=== PATIENT | female | born 1990 | race Asian ===

== ENCOUNTER 2016-10-25 07:06 | Day surgery (SDC) | payer OTHER ==
[~2016-10-25] VITALS: Ht 152.4 cm; Wt 38.3 kg
[2016-10-25] MEDS ORDERED: fentaNYL-PF 50 mCg/mL 2 mL Inj ONE (07:07)
[2016-10-25] MEDS ORDERED: Propofol 10,000 mCg/mL 20 mL Inj ONE (07:07)
[2016-10-25] MEDS ORDERED: CeFAZolin 2 Gm/50 mL D5W Duplex Bag IV ONE (07:10)
[2016-10-25 07:23] VITALS: BP 98/63; PULSE 66; RESP 16; O2SAT 81
[2016-10-25] MEDS: Lactated Ringer's 1,000 ML IV SCH ×2 (07:45→10:04)
[2016-10-25 08:51] VITALS: O2SAT 98
[2016-10-25] MEDS ORDERED: CeFAZolin 1 Gm/50 mL D5W IV Premix IV SCH (09:00)
[2016-10-25] MEDS ORDERED: Lactated Ringer's 500 ML IV PRN (09:48)
[2016-10-25] MEDS ORDERED: Lactated Ringer's 1,000 ML IV SCH (09:48)
--- NOTE | 2016-10-25 09:48 | PCM.HPANE ---
Patient Data Surgeon Admitting Provider: Attending Provider:Jocy Winchester MD Primary Care Physician:Blake Sweet MD Other Provider:[facility] Reason for Visit Urgency Of Urination Ht/WT & BMI Height (Feet): 5 Height (Inches): 0 Weight (Kilograms): 39.3 Body Mass Index 17.00 Allergies Coded Allergies: oxycodone (Verified Adverse Reaction, Intermediate, Headache, 10/23/16) Past Anesthesia History Anesthesia History: Denies:: Anesthesia Reactions, Fam Anesthesia Reaction, Fam Malignant Hypertherm, Malignant Hyperthermia Diabetes History Hx Diabetes?: No MRSA MRSA: No Medications Discontinued Reported Medications Valacyclovir 500 Mg [id number] Mg PO 10/23/16 Nortriptyline 10 Mg [id number] Mg PO HS 10/16/14 History History of ENT Problems?: No HEENT History: Denies:: Cataracts Glaucoma Hearing Problem Denture Type: None Teeth Condition: Within Normal Limits Hx of Heart Problems?: No Cardiovascular History: Denies:: Abdominal Aortic Aneurism Atrial Fibrillation Cardiac Surgery Chest Pain Congestive Heart Failure Coronary Artery Disease Edema Heart Murmur Hypertension Peripheral Vascular Rheumatic Fever Thrombophlebitis Valvular Heart Disease Hx of Respiratory Problem?: No Respiratory History: Denies:: Use of C-PAP Machine Hx Neurologic Problems?: No Neurological History: Denies:: Headaches Hx of GI Problems?: Yes Hx of Problems?: Yes Female Hx: Denies:: Currently Problems with Breasts? Skin History: Denies:: History Skin Disorders? Pressure Ulcers Hx Musculoskeletal Problems?: No Musculoskeletal History: Denies:: Back Injury Degenerative Joint Fibromyalgia Joint Replacement Musculoskeletal Trauma Myasthenia Gravis Osteoarthritis Rheumatoid Arthritis Systemic Lupus Hx of Psycho/Social Problems?: No Hx Surgeries?: Yes (Stage I interstim) Hx Any Other Health Problems?: Yes Other History: Denies:: Cancer Endocrine Disease Hospitalization Thyroid Disease History Blood Transfusions: Positive for:: Accept Blood Products? Denies:: Blood Transfusions Hx Diabetes: No Hx Alcohol Use: NoHx Substance Use: No Smoking Status: Never Smoker Have You Smoked inLast 12 mo: No Stop/Bang S-Snoring: Do You Snore Loudly: No T-Tired: feel tired, fatigued: No O-Obsered: Observed not breath: No P-Blood Pressure: treated: No B- Body Mass Index > 35 kg/m2: No A- Age over 50: No N- Neck Large Circumference: No G- Gender Male: No YINA Total Score: 0 YINA Risk Assessment: Low Risk, <3 Yes Risk Assessment Category Category 1A: Patient has history of documented sleep apnea, and HAS NOT received any narcotic, sedative or anesthesia administration during this stay. Category 1B: Patient has history of documented sleep apnea, and HAS received any narcotic , sedative or anesthesia administration during this stay Category 2: Patient has SUSPECTED Obstructive Sleep Apnea, and HAS received any narcotic , sedative or anesthesia administration during this stay. Category 3: Patient has SUSPECTED Obstructive Sleep Apnea and HAS NOT received narcotic, sedative or anesthesia administration during this stay. Category 4: Outpatient in Procedural Areas with known sleep apnea or who screen positive for High Risk via the STOP/BANG questionnaire. Exam Exam General Appearance: Alert HEENT/AIRWAY: MP 2, Neck Movement (from, 3 fb) Lungs: Clear to Auscultation Heart: Regular Rate/Rhythm Plan Impression Patient chart reviewed, patient interviewed and anesthestic plan with risks, benefits, and alternatives discussed, and informed consent obtained. NPO per Anesth. Guidelines: Yes ASA Physical Status: ASA1 Normal Healthy Anesthetic Plan: MAC Bene/Risks/Altern/Consents: Yes HP Complete Prior to Induction: Yes Ha Jones MD Oct 25, 2016 07:24
[2016-10-25] MEDS ORDERED: EPHEDrine Sulfate 50 mg/mL Inj IVPUSH PRN (09:50)
[2016-10-25] MEDS ORDERED: Phenylephrine 10,000 mCg/mL Inj IVPUSH PRN (09:50)
[2016-10-25] MEDS ORDERED: Dexamethasone 4 mg/mL Inj IVPUSH PRN (09:50)
[2016-10-25] MEDS ORDERED: MetoCLOpramide 5 mg/mL 2 mL Inj IVPUSH PRN (09:50)
[2016-10-25] MEDS ORDERED: fentaNYL-PF 50 mCg/mL 2 mL Inj IVPUSH PRN (09:50)
[2016-10-25] MEDS ORDERED: Ondansetron 2 mg/mL 2 mL Inj IVPUSH PRN (09:50)
[2016-10-25] MEDS ORDERED: Gentamicin 40 mg/mL 2 mL Inj IRRIGATION ONE (10:05)
[2016-10-25] MEDS ORDERED: Bupivacaine-MPF 0.5% W/EPI 30 mL Inj INFILTRATE ONE (10:05)
[2016-10-25] MEDS ORDERED: Vancomycin 1,000 mg Inj IRRIGATION ONE (10:05)
[2016-10-25 10:50] VITALS: BP 94/57; PULSE 56; RESP 16; O2SAT 100
[2016-10-25] MEDS ORDERED: HYDROcodone-APAP 5-325 mg Tablet PO PRN (10:50)
[2016-10-25] MEDS ORDERED: Ondansetron 8 mg ODT Tablet PO PRN (10:50)
[2016-10-25 11:17] VITALS: BP 95/56; PULSE 58; RESP 20; O2SAT 100
--- NOTE | 2016-10-25 11:46 | PCM.ANEP1 ---
Post Anesthesia PACU Phase 1 Assessment Vital Signs Vital Signs Date Time Temp Pulse Resp B/P Pulse Ox O2 Delivery O2 Flow Rate FiO2 10/25/16 11:17 58 20 95/56 100 Room Air 10/25/16 10:50 36.6 56 16 94/57 100 Room Air 10/25/16 08:51 98 Room Air 10/25/16 07:23 36.1 66 16 98/63 81 Room Air Anesthetic Administered: MAC Level of Alertness: Awake, talking RILEY's with Equal Strength: Yes Pain: No Nausea or Vomiting: No CV Function & Hydration Stable: Yes Airway Device: Oxygen Delivery: Room Air Lungs: Clear to Auscultation Dermatome Level: Full Sensation PACU Phase 2 Assessment Complications: No Follow up Care: N/A Patient Instructions Provided: N/A Ha Jones MD Oct 25, 2016 11:46
--- NOTE | 2016-10-26 10:38 | OP ---
[address] [id number] OPERATIVE REPORT PATIENT: NICANOR DA SILVA : 1990 MR#: [id number] ADMIT: 10/25/2016 JOB ID: [id number] DATE OF SURGERY: 10/25/2016 SURGEON: Jocy Winchester M.D. PROCEDURE NAME: 1 InterStim lead (S3 transforaminal sacral neuroelectrode) removal and replacement. 2 Fluoroscopy imaging and guidance 3 complex programming and initial setup of device ANESTHESIA: Local with monitored anesthesia care and IV sedation. PREOPERATIVE DIAGNOSIS(ES): Intractable urinary urgency, frequency, treated successfully with sacral nerve modulation and InterStim implant prior the patient with increasing problems, leads out of range, suspected lead migration elected lead revision. POSTOPERATIVE DIAGNOSIS(ES): Intractable urinary urgency, frequency, treated successfully with sacral nerve modulation and InterStim implant prior the patient with increasing problems, leads out of range, suspected lead migration elected lead revision. PROCEDURE IN DETAIL: After appropriate informed consent was obtained, the patient was brought to the operating room where she received IV antibiotics prior to onset of the procedure. She was made comfortable in the prone position. All pressure points carefully padded. Awake with IV sedation and some pain medications. She was cleaned, prepped, and draped in the usual sterile fashion. Fluoroscope was brought in to identify bony landmarks. We used a half/half mixture of lidocaine and Marcaine to numb up the affected areas. We numbed up the area overlying the IPG which is in the right buttock, also the stab incision overlying the right S3 sacral foramen. This was numbed up as well. The lead was easily palpable given the patient's very slight thin body habitus. We were easily able to identify the lead underneath the stab incision. This was removed in its entirety and then pulled back into the wound with the IPG which was removed, disconnected from the quadripolar electrode and handed off to the back table. This IPG has good battery life and thus was not planned to be changed. We then brought the fluoroscope in and marked out the borders of our sacral foramina, used a finder needle again with a half/half mixture of lidocaine and Marcaine for pain control to traverse again the right-sided S3 electrode at the right S3 foramen at the level of the medial border of the foramen. We had good responses of samaria and toe at low thresholds and thus converted this over in a Seldinger fashion to the quadripolar electrode. Once again, deployment followed a good course. We had good responses on all four electrodes with samaria and then toe below or near one on all four electrodes. As before, the most proximal fab was visible once the lead was deployed given the patient's very tiny body habitus. This was tunneled nicely over into the pocket site. We removed some of the old capsule, irrigated the pocket out copiously with antibiotic solution which contained vancomycin and gentamicin. We then dried off and cleaned off the IPG, reconnected to the new lead, replaced the IPG into the pocket. Hemostasis was excellent. This was carried out with electrocautery, irrigated the pocket out further with antibiotic solution and then proceeded to close the wound so it closed in a layer of 2-0 Vicryl running suture and a layer of 4-0 Monocryl and then Dermabond. Again lidocaine and Marcaine were used for long-acting postop pain control. The patient tolerated the procedure very well, was awakened, taken back to the one-day surgery area as she had been not asleep, just sedated and quite comfortable throughout the course of the procedures. Back in the one day surgery area the device was turned on and set up again (as she had a new lead) with settings of: Rate 14 PW 210 1= 0neg 3+ 2= 1neg 3+ 3= 2neg0+ 4= 3 neg 0+ MTDD
== END 2016-10-25 23:59 | disposition home or self-care (01) ==
LOC: SAS 07:06
PROVIDERS: ATTEND Urology
DX: R39.15 Urgency of urination (principal); R35.0 Frequency of micturition; R35.1 Nocturia
CPT/HCPCS: 64595; 76000; C1778; J0690; J1580; J2250; J3010; J3370; J7120